=== PATIENT | male | born 1985 | race Caucasian/White ===

== ENCOUNTER → 2016-05-11 | Outpatient (CLI) | payer OTHER ==
[~2016-05-11] MED LIST: ALBUTEROL0.09 MG/A4 IH
== END ==
LOC: RAD 06:56
DX: R10.11 Right upper quadrant pain (principal); R11.2 Nausea with vomiting, unspecified

== ENCOUNTER → 2016-05-27 | Outpatient (CLI) | payer OTHER ==
[2015-12-05 23:50] VITALS: BP 117/68
== END ==
LOC: RAD 09:14
DX: R10.13 Epigastric pain (principal); M54.6 Pain in thoracic spine; M41.35 Thoracogenic scoliosis, thoracolumbar region

== ENCOUNTER → 2016-07-09 | Outpatient (CLI) | payer OTHER ==
[2015-12-05 23:50] VITALS: BP 117/68
== END ==
LOC: LAB 07:29
DX: J02.8 Acute pharyngitis due to other specified organisms (principal)

== ENCOUNTER → 2017-01-21 | Outpatient (CLI) | payer OTHER ==
[2015-12-05 23:50] VITALS: BP 117/68
[2017-01-21 10:18] LABS: PH-URINE 6.5 (5.0 - 8.0); URINE APPEARANCE CLEAR; URINE BILIRUBIN NEGATIVE (NEGATIVE); URINE BLOOD NEGATIVE (NEGATIVE); URINE COLOR YELLOW; URINE GLUCOSE NEGATIVE (NEGATIVE); URINE KETONE NEGATIVE (NEGATIVE); URINE LEUKOCYTE ESTERASE NEGATIVE (NEGATIVE); URINE NITRATE NEGATIVE (NEGATIVE); URINE PROTEIN(semi-quant) NEGATIVE (NEGATIVE); URINE UROBILINOGEN NORMAL (NORMAL)
== END ==
LOC: LAB 09:30
PROVIDERS: Family Medicine
DX: J45.30 Mild persistent asthma, uncomplicated (principal); J30.9 Allergic rhinitis, unspecified; R30.0 Dysuria

== ENCOUNTER 2017-02-25 04:01 | Emergency (ER) | payer OTHER ==
[~2017-02-25] VITALS: Ht 182.9 cm; Wt 72.7 kg
[2017-02-25 05:07] LABS: HEMATOCRIT 43.5 % (42.0-52.0); HEMOGLOBIN 14.9 g/dL (13.5-18.0); MEAN CELL VOLUME 86 fl (78-100); MEAN CORPUSCULAR HEMOGLOBIN 29 pg (27-31); MEAN CORPUSCULAR HGB CONC 34 g/dL (33-37); MEAN PLATELET VOLUME 10.6 fl (7.4-10.4); PLATELET COUNT 238 K/mm3 (130-400); RED BLOOD COUNT 5.09 M/mm3 (4.20-5.60); RED CELL DISTRIBUTION WIDTH 12.4 % (11.5-14.5); WHITE BLOOD COUNT 9.5 K/mm3 (4.8-10.8)
[2017-02-25 05:17] LABS: ALBUMIN 4.2 g/dL (3.5-5.0); BUN/CREATININE RATIO 11.4 (6.0-26.0); CALCIUM 9.2 mg/dL (8.4-10.2); POTASSIUM 3.5 mmol/L (3.6-5.0); TOTAL BILIRUBIN 0.9 mg/dL (0.2-1.3)
[2017-02-25 05:43] LABS: LYMPHOCYTE 11 % (20-51); NEUTROPHILS 80 % (42-75)
[2017-02-25 05:44] LABS: MONOCYTE 7 % (3-10)
[2017-02-25] MEDS ORDERED: TAMIFLU 75MG75 MG PO (06:29)
[2017-02-25 06:50] VITALS: BP 124/68
== END 2017-02-25 06:50 | disposition home or self-care (01) ==
LOC: ED 04:01
PROVIDERS: Nurse Practitioner Primary Care
DX: S00.83XA Contusion of other part of head, initial encounter (principal); R55 Syncope and collapse; J10.1 Influenza due to other identified influenza virus with other respiratory manifestations; W18.39XA Other fall on same level, initial encounter; Y92.002 Bathroom of unspecified non-institutional (private) residence as the place of occurrence of the external cause
CPT/HCPCS: J1885; J2405; J7030